=== PATIENT | female | born 1945 | race Caucasian/White ===

== ENCOUNTER 2019-01-10 08:25 | Day surgery (SDC) | payer MEDICARE, OTHER, SELFPAY ==
[2019-01-10 08:41] VITALS: BP 147/74; PULSE 73; RESP 16; TEMP 36.6; O2SAT 100; BMI 27.6
--- NOTE | 2019-01-10 09:31 | PCM.HP.STD ---
Problem List (1) Personal history of colonic polyps Status: Acute History of Present Illness Date of Admission: 01/10/19 The patient is a 73 year old F personal history: Polyps. She states that her most recent colonoscopy 3 years ago. She states that she has significant diverticular disease. July 2018 she had a total knee replacement. She denies chest pain or shortness of breath. No abdominal pain. No bright red blood per rectum or melena. She states that she does get nausea with anesthetics. Past Medical History Allergies No Known Allergies Allergy (Verified 01/10/19 08:36) Home Medications: Ambulatory Orders Medication Instructions Recorded Atenolol [Tenormin] 12.5 mg PO QHS 01/17/17 Lovastatin [Mevacor] 10 mg PO QHS 01/17/17 Ranitidine HCl [Zantac] 150 mg PO QHS 01/08/19 Smoking Status: Never smoker Review of Systems Constitutional: Denies: Anorexia HEENT: Denies: Difficulty Swallowing Cardiovascular: Denies: Chest Pain Respiratory: Denies: Cough Gastrointestinal: Denies: Abdominal Pain, Melena Endocrine: Denies: Change in Body Habitus VTE Information - Inpt Only VTE Present on Admission: No Patient Problems: Active and Suspected Problems Personal history of colonic polyps (Acute) - Physical Exam General: Alert, Oriented x3, Cooperative, No apparent distress HEENT: Atraumatic Neck: Supple Lungs: Clear to auscultation Cardiovascular: Regular rate, Regular Rhythm Abdomen: Bowel Sounds Present, Soft, Non Tender Extremities: No Calf Tenderness Vital Signs Temp Pulse Resp BP Pulse Ox 97.9 F 73 16 147/74 H 100 01/10/19 08:41 01/10/19 08:41 01/10/19 08:41 01/10/19 08:41 01/10/19 08:41 Oxygen Delivery Method Room Air Weight: 156 lb 4.924 oz Body Mass Index (BMI) 27.6 Assessment/Plan All Active Problems Personal history of colonic polyps (Acute) 73-year-old female. She has had 3 previous colonoscopies. She has had previous polyps on colonoscopies. I recommend colonoscopy with possible biopsy or polypectomy is indicated. She presents via our open access program today. She is aware of the technique, benefits, risks, alternatives. We will utilize monitored anesthesia care for her. Tab Lyles M.D., F.A.C.S.
[2019-01-10 10:00] VITALS: BP 112/51; BP 147/74; PULSE 70; RESP 16; TEMP 36.1; O2SAT 99
--- NOTE | 2019-01-10 10:03 | OP.ENDO_ITS ---
01/10/2019 Eva Parsons Re : Colonoscopy procedure for Antolin Aranda Dear Issa This procedure was performed on Thursday, January 10, 2019. My impressions and recommendations are as follows: Impressions : - Hemorrhoids found on perianal exam. - Diverticulosis in the entire examined colon. Proximal ascending colon submucosal lipoma noted. - The examination was otherwise normal. - No specimens collected. Recommendations : - Discharge patient to home. - Resume previous diet. - Continue present medications. - Repeat colonoscopy in 5 years for surveillance. My findings are described in the full procedure note, which is enclosed. If I can be of further assistance, please feel free to contact me at Doctor phone number(s): Work: . Sincerely, Tab Lyles MD 01/10/2019 10:03:07 AM This report has been signed electronically.
[2019-01-10 10:05] VITALS: BP 118/63; BP 147/74; PULSE 64; RESP 16; O2SAT 100
[2019-01-10 10:10] VITALS: BP 118/66; BP 147/74; PULSE 64; RESP 16; O2SAT 100
[2019-01-10 10:20] VITALS: BP 125/64; BP 147/74; PULSE 66; RESP 16; TEMP 36.4; O2SAT 99
[2019-01-10 10:53] VITALS: BP 147/74
== END 2019-01-10 10:54 | disposition home or self-care (01) ==
LOC: EN 08:29 → AC 08:31
PROVIDERS: Family Provider Physician Assistant; PCP Physician Assistant; Referring Provider Surgery; Visit Provider Surgery
PROC: 0DJD8ZZ Inspection of Lower Intestinal Tract, Via Natural or Artificial Opening Endoscopic (ICD-10-PCS; CPT 45378; principal; 2019-01-10 09:25)
DX: K64.9 Unspecified hemorrhoids (principal); K57.30 Diverticulosis of large intestine without perforation or abscess without bleeding; Z86.010 Personal history of colon polyps
CPT/HCPCS: 45378; J7120; J2405

== ENCOUNTER → 2021-03-29 11:32 | Outpatient (CLI) | payer MEDICARE, OTHER, SELFPAY ==
--- NOTE | 2021-03-29 11:35 | RAD_ITS ---
History: Assess lung cope EXAMINATION/TECHNIQUE: XR Chest 2 Views: COMPARISON: January 18, 2017 FINDINGS: LINES/DEVICES: None. LUNGS: No consolidation, edema or effusion. No pneumothorax. MEDIASTINUM AND CARDIOVASCULAR STRUCTURES: Cardiac silhouette not enlarged. Central airways and mediastinal contour are unremarkable. BONES AND SOFT TISSUES: A prominent S-shaped scoliosis of the thoracolumbar spine unchanged from prior exam. RAD/Chest PA and Lateral IMPRESSION: No radiographic evidence of acute cardiopulmonary disease. Scoliosis. at 1705 Reported and signed by: Stephane Dutton MD Electronically Signed: Stephane Dutton MD at 17:04 EDT Tel , Service support ,
== END ==
PROVIDERS: PCP Physician Assistant; Referring Provider Internal Medicine Medical Oncology; Visit Provider Internal Medicine Medical Oncology
DX: D75.1 Secondary polycythemia (principal)
CPT/HCPCS: 71046

== ENCOUNTER 2024-04-10 05:47 | Day surgery (SDC) | payer MEDICARE, OTHER, SELFPAY ==
--- NOTE | 2024-04-03 09:59 | EKG12_ITS ---
Test Reason : PRE OP Blood Pressure : / mmHG Vent. Rate : 061 BPM Atrial Rate : 061 BPM P-R Int : 148 ms QRS Dur : 074 ms QT Int : 412 ms P-R-T Axes : 078 040 032 degrees QTc Int : 414 ms Normal sinus rhythm Normal ECG Confirmed by [address]ERN [address], JOSEFINA ([id number]), newspaper editor SOWMYA RICH ([id number]) on 04/04/2024 11:51:03 AM Referred By: Phuong Pedro Confirmed By:JOSEFINA SHIRLEY MD
[2024-04-03 10:35] LABS: Hematocrit 42.6 % (37-47); Hemoglobin 13.2 g/dL (12.0-15.0); Mean Corpuscular Hgb 26.1 pg (27.0-32.0); Mean Corpuscular Volume 84.2 fL (81-99); Mean Platelet Vol. 10.2 fl (6.2-12.0); Platelet Count 194 K/mm3 (150-450); RBC Distribution Width CV 15.1 % (11.6-14.6); RBC Distribution Width SD 46.4 fl (35.1-43.9); Red Blood Count 5.06 M/mm3 (4.2-5.4)
[2024-04-03 10:56] LABS: Prothrombin Time (Protime)PT. 13.2 SECONDS (11.7-14.9)
[2024-04-03 10:57] LABS: Partial Thromboplast Time 30.5 Seconds (24.1-36.2)
[2024-04-10] VITALS (9 sets, daily range): BP systolic 124–156; BP diastolic 59–89; PULSE 64–80; RESP 16; TEMP 36.3–36.6; O2SAT 92–100; BMI 30.4
--- NOTE | 2024-04-10 06:38 | PCM.PRE.AN2 ---
ASA Classification* ASA Classification ASA Classification: 2 Assessment & Plan Anesthesia* Anesthesia Assessment Anesthesia Assessment: Discussed sedation and/or anesthesia options, risks, benefits, and alternatives with patient/parents/legal guardian/POA. Questions invited. The patient/parents/legal guardian/POA seems to understand and agrees to proceed with anesthesia plan. Reviewed the physical assessment, medical history, allergy history and patient home medications list prior to surgery/procedure/anesthetic and documented any changes. Performed airway and anesthesia risk assessments. Anesthesia Type Anesthesia Type: General Anesthesia Focused Assessment* Airway Assessment Mouth opens: >3 cm Mallampati Score: II Focused Labs Anesthesia Preop lab: CBC WBC 5.0 K/mm3 (4.4-11.0) 04/03/24 10:17 RBC 5.06 M/mm3 (4.2-5.4) 04/03/24 10:17 Hgb 13.2 g/dL (12.0-15.0) 04/03/24 10:17 Hct 42.6 % (37-47) 04/03/24 10:17 Plt Count 194 K/mm3 (150-450) 04/03/24 10:17 CHEMISTRY Potassium 4.0 mmol/L (3.5-5.1) 07/14/21 11:10 Sodium 141 mmol/L (136-145) 07/14/21 11:10 BUN 17 mg/dL (7-18) 07/14/21 11:10 Creatinine 0.56 mg/dL (0.55-1.02) 07/14/21 11:10 Glucose 100 mg/dL (74-106) 07/14/21 11:10 COAG PT 13.2 SECONDS (11.7-14.9) 04/03/24 10:17 Pre-Assessment Diagnosis/Proposed Procedure Planned Operative Procedure(s): OPEN INCISIONAL HERNIA WITH MESH Anesthesia History Anesthesia History - family consumer scientist: Anesthesia History - family consumer scientist Hx Hospitalization No 04/01/24 08:23 Any Problems With Anesthesia Yes: PONV SEVERE 04/01/24 08:23 Cholinesterase deficiency No 04/01/24 08:23 You/Your Family Experience No 04/01/24 08:23 fever (hyperthermia) with Relationship Recent Exposure to Contagious No 01/10/19 08:41 Disease Does patient have nerve No 04/01/24 08:23 stimulator Patient instructed to have device shut off --Does patient have Pacemaker or ICD? When Was Last Pacemaker Check QUESTION #4 FULL TEXT: You/Your Family Experience fever (hyperthermia) with Anesthesia Last Oral Intake Last Oral intake: Last Oral Intake NPO since Meds taken in AM with sips of water? Meds patient instructed to take am of surgery PONV PONV - family consumer scientist: PONV - family consumer scientist Female Yes 04/01/24 08:23 HX of Motion Sickness No 04/01/24 08:23 HX of N/V After Surgery Yes 04/01/24 08:23 Non-Smoker Yes 04/01/24 08:23 Duration of Surgery greater Yes 04/01/24 08:23 than 60 minutes Number of Risk Factors 4 04/01/24 08:23 PONV Score Severe Risk 04/01/24 08:23 Height & Weight Height & Weight: Anesthesia: Height & Weight Height 5 ft 2 in 03/19/24 14:00 Respiratory Assessment Respiratory Assessment - family consumer scientist: Respiratory Tract Infection Hx - family consumer scientist Hx Respiratory Tract Infection No 04/01/24 08:23 STOP Sleep Apnea STOP Sleep Apnea - family consumer scientist: STOP Sleep Apnea - family consumer scientist Hx Hypertension Yes: CONTROLLED WITH MED 04/01/24 08:23 Hx Sleep Apnea No 04/01/24 08:23 CPAP BIPAP Do you snore loudly (louder No 04/01/24 08:23 than talking or can be heard Do you often feel tired/ No 04/01/24 08:23 fatigued/ sleepy during daytime? Has anyone observed you stop No 04/01/24 08:23 breathing during sleep? STOP Results Negative 04/01/24 08:23 QUESTION #5 FULL TEXT : Do you snore loudly (louder than talking or can be heard through closed doors)? Tobacco Use History Tobacco Use History - family consumer scientist: Tobacco Use History - family consumer scientist Tobacco Use Smoking Status Never smoker 04/01/24 08:23 Hx Tobacco Use No 04/01/24 08:23 Years Smoking Packs Smoked per Day Smoking Cessation Date was within the last 15 years Hx Smoking Cessation Date Hx Smoking Cessation Counseling Hematologic Medial History Hematologic Hx - family consumer scientist: Hematologic Medical Hx - hypertrichologist Hx of Blood Transfusion No 04/01/24 08:23 Hx of Transfusion in last 3 No 04/01/24 08:23 Months Date of Last Transfusion (if within last 3 months) Ever experience any problems No 04/01/24 08:23 with transfusion(s)? Specify any problems Hx of Preganancy in last 3 No 04/01/24 08:23 Months Nurse Filling Out Transfusion DSCHRIBER 04/01/24 08:23 & Questions: Date: 04/01/24 04/01/24 08:23 Time: 08:25 04/01/24 08:23 Patient unable to answer at this time (ie. confused, unrespo /Reproduction History /Reproductive History - family consumer scientist: /Reproductive Hx- family consumer scientist Hx Now No 04/01/24 08:23 Gestational Age (in weeks): EDC: Hx Hx Para Hx Section SAB No 04/01/24 08:23 Active Medications Active Medications: Current Medications Generic Name Dose Route Start Last Admin Trade Name Freq PRN Reason Stop Dose Admin Cefazolin Sodium 2 gm/ N/A 20 mls @ 400 mls/hr 04/10/24 07:30 IV 04/10/24 07:32 PREOP ONE Lactated Ringer's 1,000 mls @ 15 mls/hr 04/10/24 06:00 IV 04/15/24 19:19 .Q48H [facility] Protocol PFSH Medical History Wears glasses Post-menopausal Anxiety Alcohol use Arthritis Low iron High cholesterol Difficulty swallowing History of diverticulitis Gastric reflux Non-smoker History of pain when walking Polycythemia Tubular adenoma Shoulder pain History of ITP Cardiac murmur Osteopenia Degenerative arthritis of hip Hypertension Hyperlipidemia Vitamin D deficiency Erythrocytosis Home Medications ?Medication ?Instructions ?Recorded ?Last Taken ?Type atenolol 25 mg tablet (Tenormin) 12.5 mg PO QHS htn 01/17/17 01/23/17 20:00 History 12.5 MG lovastatin 20 mg tablet 20 mg PO QHS cholesterol 01/17/17 Unknown History famotidine 20 mg tablet 20 mg PO DAILY 04/01/24 Unknown History multivitamin (Daily Multi-Vitamin 1 tab PO DAILY 04/01/24 Unknown History tablet) Allergy/AdvReac Type Severity Reaction Status Date / Time latex AdvReac Intermediate Rash Verified 04/01/24 08:21 Family History Sister CVA (cerebral vascular accident) Cancer rare cancer of buttock muscle/soft tissue removed with local resection Thyroid disorder Diabetes Rheumatoid arthritis Father Thyroid disorder Heart disease CHF (congestive heart failure) Mother Heart disease Rheumatoid arthritis Surgical History Hx of colonoscopy Hx of total knee arthroplasty History of left salpingo-oophorectomy History of cholecystectomy History of appendectomy History of pelvic surgery History of delivery History of right knee joint replacement Social History household members: spouse current occupational status: retired Smoking Status: Never smoker second hand exposure: No alcohol intake: current alcohol intake frequency: a few times a month substance use type: does not use caffeine: Yes (3 cups/day) ramya/zoroastrian: Jew seatbelt use: always do you feel safe at home: Yes Review of Systems (Anesthesia) ROS Narrative System reviewed and no additional complaints, except as documented.
[2024-04-10] MEDS: Lactated Ringers 1,000 ML 15 ML IV (06:46)
--- NOTE | 2024-04-10 06:59 | HP.PCM_ITS ---
History and Physical Date of Admission: 04/10/24 Date of Service: 03/19/24 MR#: [id number] Acct: [id number] Name: CYNDEE LOPEZ Rep #: [id number] : 1945 Provider: Dr. Phuong Pedro MD Age/Sex: 78/F Location: [facility] Status: Signed Intake Vital Signs 04/27/2209:35 03/19/2414:00 Height 5 ft 2 in 5 ft 2 in Weight: 165 lb 2 oz BMI 30.2 BP 160/82 H Blood Pressure Location Rt brachial Position Sitting Respiration 18 Pulse 76 Pulse Source Monitor Temp 97.5 F L Temp Source Temporal Pulse Oximetry (%) 98 Oxygen Delivery Method room air Intake Visit Reasons: UMBILICAL HERNIA Chief Complaint: umbilical hernia Is patient in pain?: No Allergies latex Adverse Reaction (Intermediate, Verified 03/19/24 14:01) Rash Medications ?Medication ?Instructions ?Recorded ?Confirmed ?Type atenolol 25 mg tablet (Tenormin) 12.5 mg PO QHS htn 01/17/17 03/19/24 History lovastatin 20 mg tablet 10 mg PO QHS cholesterol 01/17/17 03/19/24 History albuterol sulfate 90 mcg/actuation 2 puff inhalation Q6H PRN 03/09/21 03/19/24 History aerosol inhaler (ProAir HFA) Have you fallen in the past year?: No PFSH Medical History Asymptomatic cholelithiasis Cardiac murmur Degenerative arthritis of hip Erythrocytosis GERD without esophagitis History of ITP Hyperlipidemia Hypertension Osteopenia Polycythemia Right knee DJD Shoulder pain Sinusitis Tubular adenoma Vitamin D deficiency Surgical History History of left salpingo-oophorectomy History of cholecystectomy History of appendectomy History of pelvic surgery History of delivery History of right knee joint replacement Family History Sister CVA (cerebral vascular accident) Cancer rare cancer of buttock muscle/soft tissue removed with local resection Thyroid disorder Diabetes Rheumatoid arthritisFather Thyroid disorder Heart disease CHF (congestive heart failure)Mother Heart disease Rheumatoid arthritis Social History household members: spouse current occupational status: retired Smoking Status: Never smoker second hand exposure: No alcohol intake: current alcohol intake frequency: a few times a month substance use type: does not use caffeine: Yes (3 cups/day) rayma/latter day: Hinduism seatbelt use: always do you feel safe at home: Yes HPI HPI HPI: 78-year-old female presents due to incisional hernia at umbilicus. Patient states it has gotten larger over time. Currently denies any pain at the site. Patient is interested in having it repaired due to enlarging. Patient was previously seen by Dr. Lyles but time she was having diverticulitis flareups however she has not really had any since then and has never needed to be hospitalized for diverticulitis. ROS General General: No weight change, appetite, fatigue, colon cancer, breast cancer or weakness HEENT HEENT: Yes eye surgery; No difficulty swallowing, eye injury, swollen glands or hoarseness Additional Details: cataracts Endo Endocrine: No thyroid disease, diabetes mellitus, thyroid cancer, Hair loss, heat intolerance or cold intolerance Skin Skin: No rash or changing moles Musc Musculoskeletal: Yes arthritis; No back problems, rheumatoid arthritis, gout or joint pain Cardio Cardiovascular: Yes high blood pressure; No murmur, pacemaker, heart disease, atrial fibrillation, heart attack, heart stent, palpitations, shortness of breat with exertion or chest pain Psych Psychiatric: No depression, anxiety or hearing voices Resp Respiratory: No shortness of breath, No sleep apnea, No cough, No COPD, No asthma, No emphysema and No wheezing Gastro Gastrointestinal: No abdominal pain, No nausea or vomiting, No diarrhea, Yes constipation, No blood in stool, Yes acid reflux, No hemorrhoids, No ulcers, No gallbladder problem and No black,tarry stools Hao Hematologic: No blood thinners, No blood disorders, No bleeding, Yes anemia and No blood clots Additional Details: pt noted on intake form slight anemia Neuro Neurologic: No numbness, No tingling and No weakness Exam Const General: cooperative, healthy appearing, comfortable and no acute distress HENMT Head: normocephalic and atraumatic Neck Neck: supple Resp Effort & Inspection: normal respiratory effort Cardio Rate: regular rate GI Inspection: non-distended Palpation: soft, hernia (Incisional at umb., reducible, abt 1.5 cm--comes out more to the Rt side) and nontender Skin General: no rashes or lesions noted Neuro General: CN's II-XI intact bilaterally Extrem General: normal to inspection Psych Mental Status: mental status grossly normal Attitude: cooperative Assessment and Plan Assessment and Plan (1) Recurrent incisional hernia: Status: Acute Plan Did review patient's previous CAT scan from 2021 personally. Plan to do an recurrent incisional hernia repair with mesh. Reviewed the procedure with the patient including the risks, including but not limited to infection, bleeding, injury to the small bowel, and recurrence. Patient and her no further question this time. Phuong Pedro M.D. Pager: [phone] [facility] [address] [place] [address], [address] [place] [address] Office: [phone] Coding Level of Care Code Off vis,est,level 4 Diagnoses Recurrent incisional hernia K43.2 Clinical Quality Measures Falls Risk Screening/Assistive Devices Have you fallen in the past year?: No 03/20/24 0944 <Electronically signed by Phuong Pedro MD> Date Phuong Pedro MD
[2024-04-10] MEDS: Cefazolin 2 GM in Syringe IV (07:30)
[2024-04-10] MEDS: Bupiv/Epi 0.25% 30 ML Vial (08:30)
--- NOTE | 2024-04-10 08:30 | OP.PCM_ITS ---
Report of Operation Date of Procedure: 04/10/24 Pre-Operative Diagnosis: Recurrent incisional hernia Post-Operative Diagnosis: Same Surgery/Procedure Performed:: Recurrent incisional hernia repair with mesh Surgeon: Phuong Pedro gluten settling tender: Mirtha Messina Type of Anesthesia: General/Supplemental Anesthesiologist: Edis Mata Special Medications: Ancef 2 g IV x 1 Specimen's removed: none Estimated Blood Loss (mL): < 10 cc Description of Procedure: Patient was brought into the room placed supine on the operating table. Correct patient, procedure, site, positioning, special, was verified prior to procedure. General anesthesia was induced. The abdomen was prepped draped in usual sterile fashion. A curvilinear incision was made below the umbilicus with a 15 blade scalpel. This was deepened with electrocautery. A hemostat was used to go around the stalk of the umbilicus and Metzenbaum scissors was used to carefully divide the hernia sac from the skin of the umbilicus. The fascia around the hernia defect was cleared and the hernia defect measured 3 cm x 1.[address] hernia patch medium 6.4 cm was used. The tails of the mesh was secured with 0 Prolene mattress sutures. The fascial defect was also closed with 3 [id number] 0 Prolene sutures. The wound was irrigated with saline. Hemostasis achieved with electrocautery. The skin of the umbilicus was secured to the fascia using 3-0 Vicryl suture interrupted. The incision was closed with 3-0 Vicryl subdermal interrupted sutures and the skin was closed with interrupted 4-0 Monocryl sutures. Steri- Strips and Tegaderm and OpSite were placed over the incision once sterile cotton balls were placed in the umbilicus. Patient was extubated. Patient tolerated procedure well and was taken to the postanesthesia care unit in stable condition. Grafts/Implants Used: Ventralex ST hernia patch medium 6.4 cm (ref [id number] lot [id number]) Complications none
--- NOTE | 2024-04-10 08:34 | DCINST_ITS ---
Discharge Instructions Diet Discharge Diet: Light diet - advance as tolerated Activity May shower in (days): 5 (Keep umbilical dressing clean dry and intact for 5 days. Okay to tape off with a Ziploc bag to shower. Or lower shower and upper sponge bath.) Lifting Restrictions: no lifting >20 lbs x 2 wks, no strenuous exercise for 4 wks Additional Activity Instructions:: - Dressing / Incision Call your doctor if your incision/area has: Continuous Slow Oozing, Sudden Increased Bleeding, Increased Pain/ Swelling, Increased Redness, Foul Smelling Discharge and Swelling at the incision site Call your doctor if you observe: Fever of 101 or Higher Remove Dressing in: 5 days (After 5 days okay to remove surgical dressing. Place cotton ball or rolled up gauze in bellybutton and retape daily for 2 more days.) Cleanse incision/area with: Do not get Incision Wet (for 5 days) Additional Dressing/Incision Instructions:: Steri-Strips will fall off in 7 to 10 days, if they do not fall off okay to remove after 10 days. Follow Up Care Please Follow Up With: Phuong Pedro MD When: Call the office for a follow-up appointment 2 weeks; after 5 PM and on the weekends call [phone] with any concerns. Test Results: Test results from this visit will be discussed in further detail at your follow- up appointment, if applicable. Discharge Plan Admission Attending Provider: Phuong Pedro Primary Care Provider: Eva Parsons Instructions Print Language: Estonian Discharge Orders/Prescriptions Prescriptions: New tramadol 50 mg tablet 50 mg PO Q6H PRN (Reason: pain) 3 Days Qty: 5 0RF Continued atenolol [Tenormin] 25 MG tablet 12.5 mg PO QHS lovastatin 20 MG tablet 20 mg PO QHS multivitamin [Daily Multi-Vitamin] Tablet 1 tab PO DAILY famotidine 20 mg tablet 20 mg PO DAILY Referrals / Follow Up: Eva Parsons PA [Primary Care Provider] - Disposition Disposition (needs filled in before D/C Order can be placed): Home, Self Care
--- NOTE | 2024-04-10 08:55 | PCM.POST.ANE ---
Anesthesia: Postop Eval I Current Vital Signs Temperature: 97.5 F Pulse Rate: 80 Blood Pressure: 128/59 Respiratory Rate: 16 Pulse Ox: 93 Oxygen Delivery Method: Room Air Assessment Airway patent: Yes Spontaneous unlabored respirations: Yes Mental status: Awake and Calm nausea: No Vomiting: No Anesthesia Complication: No Fluid Hydration Crystalloid volume administer (ml): 800 Total IV fluid infused: 800 Progress Note Anesthesia document: Postop Eval 1 completed: Yes
[2024-04-10] MEDS: Acetaminophen 325 MG Tablet 650 MG PO (09:26)
--- NOTE | 2024-04-10 10:29 | POSTOPAN2_ITS ---
Anesthesia Postop Eval I Sum Postop Eval Completion status Anesthesia document: Postop Eval 1 completed: Yes Anesthesia Postop Eval I Summary Anesthesia Postop Eval I Summary: Anesthesia Postop Eval I: Assessment Summary Airway patent Yes 04/10/24 09:08 LINUX SECURITY ADMINISTRATOR.GDOTT Spontaneous unlabored Yes 04/10/24 09:08 LINUX SECURITY ADMINISTRATOR.GDOTT respirations Mental status Awake,Calm 04/10/24 09:08 LINUX SECURITY ADMINISTRATOR.GDOTT nausea No 04/10/24 09:08 LINUX SECURITY ADMINISTRATOR.GDOTT Vomiting No 04/10/24 09:08 LINUX SECURITY ADMINISTRATOR.GDOTT Anesthesia Postop Eval I: Fluid Summary Crystalloid volume administer 800 04/10/24 09:08 LINUX SECURITY ADMINISTRATOR.GDOTT (ml) Colloids volume administered ( ml) Blood Product volume administered (ml) Total IV fluid infused 800 04/10/24 09:08 LINUX SECURITY ADMINISTRATOR.GDOTT Anesthesia Postop Eval I: Summary Notes Anesthesia Complication No 04/10/24 09:08 LINUX SECURITY ADMINISTRATOR.GDOTT Anesthesia Complication Comment: Post-operative progress note Anesthesia: Postop Eval II Evaluation Mental status: Awake Pain Level: 0 nausea: No Vomiting: No
--- NOTE | 2024-04-10 10:29 | PCM.POSTANE2 ---
Anesthesia Postop Eval I Sum Postop Eval Completion status Anesthesia document: Postop Eval 1 completed: Yes Anesthesia Postop Eval I Summary Anesthesia Postop Eval I Summary: Anesthesia Postop Eval I: Assessment Summary Airway patent Yes 04/10/24 09:08 SENIOR SEARCH MARKETING ANALYST.GDOTT Spontaneous unlabored Yes 04/10/24 09:08 SENIOR SEARCH MARKETING ANALYST.GDOTT respirations Mental status Awake,Calm 04/10/24 09:08 SENIOR SEARCH MARKETING ANALYST.GDOTT nausea No 04/10/24 09:08 SENIOR SEARCH MARKETING ANALYST.GDOTT Vomiting No 04/10/24 09:08 SENIOR SEARCH MARKETING ANALYST.GDOTT Anesthesia Postop Eval I: Fluid Summary Crystalloid volume administer 800 04/10/24 09:08 SENIOR SEARCH MARKETING ANALYST.GDOTT (ml) Colloids volume administered ( ml) Blood Product volume administered (ml) Total IV fluid infused 800 04/10/24 09:08 SENIOR SEARCH MARKETING ANALYST.GDOTT Anesthesia Postop Eval I: Summary Notes Anesthesia Complication No 04/10/24 09:08 SENIOR SEARCH MARKETING ANALYST.GDOTT Anesthesia Complication Comment: Post-operative progress note Anesthesia: Postop Eval II Evaluation Mental status: Awake Pain Level: 0 nausea: No Vomiting: No
== END 2024-04-10 11:13 | disposition home or self-care (01) ==
LOC: SDC 05:47 → AC 05:48
PROVIDERS: Anesthesiology; PCP Physician Assistant; Referring Provider Surgery; Visit Provider Surgery
PROC: (CPT 49615; principal; 2024-04-10 07:15)
DX: K43.2 Incisional hernia without obstruction or gangrene (principal); E78.00 Pure hypercholesterolemia, unspecified; K21.9 Gastro-esophageal reflux disease without esophagitis; Z79.899 Other long term (current) drug therapy
CPT/HCPCS: 49615; 00750; 36415; 85027; 85610; 85730; 93005; C1781; J7120; J2405